=== PATIENT | male | born 1955 | race Caucasian/White ===

== ENCOUNTER 2021-04-23 04:27 | Day surgery (SDC) | payer OTHER ==
[2021-04-21 08:26] VITALS: BMI 26.2
[2021-04-23 10:42] VITALS: TEMP 98
[2021-04-23 10:43] VITALS: BP 86/56; PULSE 79
== END 2021-04-23 11:10 | disposition home or self-care (01) ==
LOC: JASU-ENDO 04:27
PROVIDERS: ATTEND Internal Medicine Gastroenterology
PROC: 0DB68ZX Excision of Stomach, Via Natural or Artificial Opening Endoscopic, Diagnostic (ICD-10-PCS; 2021-04-23)
PROC: 0DB18ZX Excision of Upper Esophagus, Via Natural or Artificial Opening Endoscopic, Diagnostic (ICD-10-PCS; 2021-04-23)
PROC: 0DB28ZX Excision of Middle Esophagus, Via Natural or Artificial Opening Endoscopic, Diagnostic (ICD-10-PCS; 2021-04-23)
PROC: 0DB38ZX Excision of Lower Esophagus, Via Natural or Artificial Opening Endoscopic, Diagnostic (ICD-10-PCS; principal; 2021-04-23 10:15)
DX: K22.70 Barrett's esophagus without dysplasia (principal); K44.9 Diaphragmatic hernia without obstruction or gangrene; K21.00 Gastro-esophageal reflux disease with esophagitis, without bleeding; K29.50 Unspecified chronic gastritis without bleeding; Z21 Asymptomatic human immunodeficiency virus [HIV] infection status; I10 Essential (primary) hypertension; Z86.19 Personal history of other infectious and parasitic diseases
CPT/HCPCS: 88305-TC; 88342-TC